=== PATIENT | female | born 1985 | race Caucasian/White ===

== ENCOUNTER 2017-10-05 17:35 | Emergency (ER) | payer OTHER ==
[~2017-10-05] VITALS: Ht 172.7 cm; Wt 86.6 kg
[2017-10-05 17:48] VITALS: Ht 172.7 cm; Wt 86.6 kg
[2017-10-05 18:35] LABS: microscopic required? YES; urine erythrocyte TRACE (NEGATIVE)
[2017-10-05 18:44] LABS: BASOPHIL % 0.4 % (0-2); PLATELET COUNT 295 x10^3mcL (130-400); RED CELL DISTRIBUTION WIDTH 14.1 % (11.5-14.5)
[2017-10-05 18:51] LABS: CARBON DIOXIDE 22.4 mmol/L (21-32); CHLORIDE SERUM 105 mmol/L (98-107); POTASSIUM SERUM 3.6 mmol/L (3.5-5.1); SODIUM SERUM 143 mmol/L (136-145)
[2017-10-05 18:53] LABS: CALCIUM 8.5 mg/dL (8.5-10.1); CREATININE SERUM 0.8 mg/dL (0.6-1.0); GFR1 > 60 mL/min; GLUCOSE SERUM 102 mg/dL (74-106)
[2017-10-05 18:56] LABS: ALKALINE PHOSPHATASE 119 U/L (46-116); AMYLASE 53 U/L (25-115); BILIRUBIN TOTAL 0.73 mg/dL (0.20-1.00); LIPASE 53 IU/L (73-393); TOTAL PROTEIN, SERUM 7.7 g/dL (6.4-8.2)
[2017-10-05 18:57] LABS: ALBUMIN 3.6 g/dL (3.4-5.0); ALT/SGPT 20 U/L (14-59); AST/SGOT 16 U/L (15-37)
[2017-10-05 21:06] VITALS: BP 121/70
== END 2017-10-05 21:00 | disposition home or self-care (01) ==
LOC: ED 17:35
PROVIDERS: Emergency Medicine
DX: R10.13 Epigastric pain (principal); R11.10 Vomiting, unspecified; R19.7 Diarrhea, unspecified
CPT/HCPCS: J1885; J2270; J2405; J3490; J7030

== ENCOUNTER 2018-03-19 08:15 | Day surgery (SDC) | payer OTHER ==
[~2018-03-19] VITALS: Ht 160 cm; Wt 84.4 kg
[2018-03-19 09:04] VITALS: BP 113/70
[2018-03-19 11:44] VITALS: BP 124/82
== END 2018-03-19 10:50 | disposition home or self-care (01) ==
LOC: DS 08:15 → OR 08:30 → DS 08:30 → OR 09:30 → DS 10:00
DX: K29.70 Gastritis, unspecified, without bleeding (principal); G43.909 Migraine, unspecified, not intractable, without status migrainosus; E66.9 Obesity, unspecified; Z68.33 Body mass index [BMI] 33.0-33.9, adult; Z90.49 Acquired absence of other specified parts of digestive tract
CPT/HCPCS: 43235; J1610; J2250; J2310; J3010; J3490

== ENCOUNTER 2019-11-10 17:10 | Emergency (ER) | payer OTHER ==
[~2019-11-10] VITALS: Ht 160 cm; Wt 88.9 kg
[2019-11-10 17:23] VITALS: BP 109/77; Ht 160 cm; Wt 88.9 kg
== END 2019-11-10 19:49 | disposition home or self-care (01) ==
LOC: ED 17:10
DX: S76.011A Strain of muscle, fascia and tendon of right hip, initial encounter (principal); S50.12XA Contusion of left forearm, initial encounter; S70.12XA Contusion of left thigh, initial encounter; V49.9XXA Car occupant (driver) (passenger) injured in unspecified traffic accident, initial encounter; Y93.I9 Activity, other involving external motion; Y92.413 State road as the place of occurrence of the external cause; Y99.8 Other external cause status
CPT/HCPCS: 90715; Q0092